=== PATIENT | female | born 1935 | race Two or more races ===

== ENCOUNTER 2017-08-29 18:43 | Inpatient (IN) | payer OTHER ==
[~2017-08-29] VITALS: Ht 149.9 cm; Wt 61.2 kg
[~2017-08-29 18:43] MED LIST: ALBUTEROL0.63 MG/3; ANORO ELLIPTA1 EACH; ATIVAN0.5 MG; CATAFLAM50 MG PO; CELEBREX200MG PO; CIPRO500 MG PO; COZAAR50 MG; DULERA 100 MCG/13 GM; GABAPENTIN800 MG; GLUCOPHAGE XR750 MG; INTESTINEX1 CAP PO; INTESTINEX680 MG PO; IRON1TAB4 PO; Intestinex CAP PO; LEVAQUIN750 MG PO; LYRICA100 MG; LYRICA50 MG; MEDROLPACK PO; NABUMETONE750 MG PO; NEURONTIN300 MG PO; NEURONTIN800 MG; ORPH100T PO; PEPCID40 MG PO; PROZAC10 MG; SINGULAIR10 MG; SPIRIVA; ULTRAN; VASOTEC5 MG; ZOFRAN4 MG PO; ZYNCOF 20-400120 ML PO; [UNRECOGNIZED DRUG - OTHER] PO
[2017-09-06] MEDS ORDERED: FLUCONAZOLE100 MG PO (11:38)
== END 2017-09-06 13:23 | disposition home or self-care (01) | DRG 202 ==
LOC: ER 18:43 → SEC-K 08-30 07:52 → MEDJ 08-30 14:14
PROC: 3E0F7GC Introduction of Other Therapeutic Substance into Respiratory Tract, Via Natural or Artificial Opening (ICD-10-PCS; principal; 2017-08-30)
PROC: 4A033R1 Measurement of Arterial Saturation, Peripheral, Percutaneous Approach (ICD-10-PCS; 2017-08-30)
PROC: BW24ZZZ Computerized Tomography (CT Scan) of Chest and Abdomen (ICD-10-PCS; 2017-08-30)
PROC: BW21Y0Z Computerized Tomography (CT Scan) of Abdomen and Pelvis using Other Contrast, Unenhanced and Enhanced (ICD-10-PCS; 2017-09-03)
DX: J45.31 Mild persistent asthma with (acute) exacerbation (principal); J44.1 Chronic obstructive pulmonary disease with (acute) exacerbation; N39.0 Urinary tract infection, site not specified; R09.02 Hypoxemia; E11.42 Type 2 diabetes mellitus with diabetic polyneuropathy; I10 Essential (primary) hypertension; R41.0 Disorientation, unspecified; K57.30 Diverticulosis of large intestine without perforation or abscess without bleeding; E86.0 Dehydration; K80.80 Other cholelithiasis without obstruction; K29.60 Other gastritis without bleeding

== ENCOUNTER 2017-09-10 18:56 | Inpatient (IN) | payer OTHER ==
[~2017-09-10] VITALS: Ht 157.5 cm; Wt 56.7 kg
[~2017-09-10 18:56] MED LIST changes: +FLUCONAZOLE100 MG PO
[2017-09-23] MEDS ORDERED: PROTONIX40 MG PO (10:46)
== END 2017-09-23 13:28 | disposition home or self-care (01) | DRG 392 ==
LOC: ER 18:56 → MEDI 09-11 10:33
PROC: BW28ZZZ Computerized Tomography (CT Scan) of Head (ICD-10-PCS; principal; 2017-09-11)
PROC: 02HV33Z Insertion of Infusion Device into Superior Vena Cava, Percutaneous Approach (ICD-10-PCS; 2017-09-12)
PROC: CF1C1ZZ Planar Nuclear Medicine Imaging of Hepatobiliary System, All using Technetium 99m (Tc-99m) (ICD-10-PCS; 2017-09-12)
PROC: B030ZZZ Magnetic Resonance Imaging (MRI) of Brain (ICD-10-PCS; 2017-09-12)
PROC: 3E0F7GC Introduction of Other Therapeutic Substance into Respiratory Tract, Via Natural or Artificial Opening (ICD-10-PCS; 2017-09-17)
PROC: 4A033R1 Measurement of Arterial Saturation, Peripheral, Percutaneous Approach (ICD-10-PCS; 2017-09-17)
PROC: BW21ZZZ Computerized Tomography (CT Scan) of Abdomen and Pelvis (ICD-10-PCS; 2017-09-19)
DX: K57.32 Diverticulitis of large intestine without perforation or abscess without bleeding (principal); J44.1 Chronic obstructive pulmonary disease with (acute) exacerbation; J45.31 Mild persistent asthma with (acute) exacerbation; I10 Essential (primary) hypertension; E87.6 Hypokalemia; E83.42 Hypomagnesemia; E83.39 Other disorders of phosphorus metabolism; K52.89 Other specified noninfective gastroenteritis and colitis; K29.00 Acute gastritis without bleeding; E11.42 Type 2 diabetes mellitus with diabetic polyneuropathy; R09.02 Hypoxemia; K29.80 Duodenitis without bleeding; K80.80 Other cholelithiasis without obstruction; E83.51 Hypocalcemia
CPT/HCPCS: 70553

== ENCOUNTER → 2017-09-30 | Emergency (ER) | payer OTHER ==
[~2017-09-30] VITALS: Ht 149.9 cm; Wt 56.7 kg
[~2017-09-30] MED LIST changes: +PROTONIX40 MG PO
== END | disposition left against medical advice (07) ==
LOC: ER 13:51
DX: Z53.20 Procedure and treatment not carried out because of patient's decision for unspecified reasons (principal)

== ENCOUNTER → 2017-10-25 | Emergency (ER) | payer OTHER ==
[~2017-10-25] VITALS: Ht 180.3 cm; Wt 56.7 kg
[~2017-10-25] MED LIST changes: +PRINIVIL10 MG
== END | disposition home or self-care (01) ==
LOC: ER 06:33
DX: K29.70 Gastritis, unspecified, without bleeding (principal)

== ENCOUNTER 2018-02-23 09:19 | Outpatient (CLI) | payer OTHER | END 2018-02-23 09:28 | disposition home or self-care (01) | LOC: MRI 09:19 | DX: M54.16 Radiculopathy, lumbar region (principal) | CPT/HCPCS: 72148 ==

== ENCOUNTER 2018-04-04 09:05 | Outpatient (CLI) | payer OTHER | END 2018-04-04 09:07 | disposition home or self-care (01) | LOC: MAMO-SONO 09:05 | DX: Z12.31 Encounter for screening mammogram for malignant neoplasm of breast (principal); Z87.898 Personal history of other specified conditions; N64.89 Other specified disorders of breast; R07.89 Other chest pain ==

== ENCOUNTER 2018-04-12 19:23 | Emergency (ER) | payer OTHER ==
[~2018-04-12] VITALS: Ht 149.9 cm; Wt 59.9 kg
== END 2018-04-12 23:53 | disposition home or self-care (01) ==
LOC: ER 19:23
DX: J45.901 Unspecified asthma with (acute) exacerbation (principal); J11.1 Influenza due to unidentified influenza virus with other respiratory manifestations

== ENCOUNTER 2018-09-24 20:57 | Emergency (ER) | payer OTHER ==
[~2018-09-24] VITALS: Ht 149.9 cm; Wt 65.8 kg
[2018-09-24] MEDS ORDERED: QVAR REDIHALE10.6 G1 IH (21:20)
[2018-09-24] MEDS ORDERED: ANORO ELLIPTA1 EACH (21:20)
[2018-09-25] MEDS ORDERED: PEPCID AC20 MG PO (01:23)
[2018-09-26] MEDS ORDERED: INTESTINEX680 M1 PO (15:54)
== END 2018-09-25 01:31 | disposition home or self-care (01) ==
LOC: ER 20:57
DX: K29.60 Other gastritis without bleeding (principal); J45.998 Other asthma

== ENCOUNTER 2018-09-26 10:15 | Emergency (ER) | payer OTHER ==
[~2018-09-26] VITALS: Ht 160 cm; Wt 68.0 kg
[~2018-09-26 10:15] MED LIST changes: +PEPCID AC20 MG PO; +QVAR REDIHALE10.6 G1 IH
[2018-09-26] MEDS ORDERED: INTESTINEX680 M1 PO (15:54)
== END 2018-09-26 16:53 | disposition home or self-care (01) ==
LOC: ER 10:15
DX: E86.0 Dehydration (principal); R10.13 Epigastric pain; R10.32 Left lower quadrant pain

== ENCOUNTER 2018-10-20 18:34 | Emergency (ER) | payer OTHER ==
[~2018-10-20] VITALS: Ht 149.9 cm; Wt 63.5 kg
[~2018-10-20 18:34] MED LIST changes: +INTESTINEX680 M1 PO
== END 2018-10-20 19:48 | disposition home or self-care (01) ==
LOC: ER 18:34
DX: R10.13 Epigastric pain (principal)

== ENCOUNTER 2018-11-07 06:39 | Outpatient (CLI) | payer OTHER | END 2018-11-07 07:51 | disposition home or self-care (01) | LOC: LAB 06:39 | DX: D50.8 Other iron deficiency anemias (principal); J44.9 Chronic obstructive pulmonary disease, unspecified; I10 Essential (primary) hypertension; D51.1 Vitamin B12 deficiency anemia due to selective vitamin B12 malabsorption with proteinuria; E08.42 Diabetes mellitus due to underlying condition with diabetic polyneuropathy; D51.8 Other vitamin B12 deficiency anemias; D55.0 Anemia due to glucose-6-phosphate dehydrogenase [G6PD] deficiency; E03.8 Other specified hypothyroidism; E06.3 Autoimmune thyroiditis; R97.0 Elevated carcinoembryonic antigen [CEA] ==

== ENCOUNTER 2018-11-07 08:20 | Outpatient (CLI) | payer OTHER | END 2018-11-07 08:27 | disposition home or self-care (01) | LOC: RAD 08:20 | DX: R07.89 Other chest pain (principal) ==

== ENCOUNTER 2019-10-21 19:40 | Emergency (ER) | payer OTHER ==
[~2019-10-21] VITALS: Ht 149.9 cm; Wt 66.7 kg
[2019-10-21] MEDS ORDERED: GLIPIZIDE XL5 MG (20:20)
== END 2019-10-21 23:41 | disposition home or self-care (01) ==
LOC: ER 19:40
DX: K80.20 Calculus of gallbladder without cholecystitis without obstruction (principal)

== ENCOUNTER 2019-10-30 13:33 | Emergency (ER) | payer OTHER ==
[~2019-10-30] VITALS: Ht 149.9 cm; Wt 66.7 kg
[~2019-10-30 13:33] MED LIST changes: +GLIPIZIDE XL5 MG
[2019-10-30] MEDS ORDERED: LYRICA200 MG (13:43)
== END 2019-10-30 18:51 | disposition home or self-care (01) ==
LOC: ER 13:33
DX: R41.0 Disorientation, unspecified (principal); R53.81 Other malaise

== ENCOUNTER 2020-01-22 18:31 | Inpatient (IN) | payer OTHER ==
[~2020-01-22] VITALS: Ht 149.9 cm; Wt 71.2 kg
[~2020-01-22 18:31] MED LIST changes: +LYRICA200 MG
[2020-01-22] MEDS ORDERED: ATORVASTATIN CA20 MG (19:12)
[2020-02-04] MEDS ORDERED: AMLODIPINE BESYL5 MG PO (16:15)
[2020-02-04] MEDS ORDERED: AVIDOXY100 MG PO (16:16)
== END 2020-02-04 18:12 | disposition home or self-care (01) | DRG 190 ==
LOC: ER 18:31 → SEC-K 01-23 10:00 → SURH 01-24 00:57 → SEC-K 01-24 00:58 → SURH 01-24 07:44
PROVIDERS: ADMIT Internal Medicine; ATTEND Internal Medicine
PROC: 4A033R1 Measurement of Arterial Saturation, Peripheral, Percutaneous Approach (ICD-10-PCS; 2020-01-23)
PROC: 5A09557 Assistance with Respiratory Ventilation, Greater than 96 Consecutive Hours, Continuous Positive Airway Pressure (ICD-10-PCS; 2020-01-23)
PROC: BW28ZZZ Computerized Tomography (CT Scan) of Head (ICD-10-PCS; 2020-01-23)
PROC: 02HV33Z Insertion of Infusion Device into Superior Vena Cava, Percutaneous Approach (ICD-10-PCS; principal; 2020-01-24)
PROC: B54MZZZ Ultrasonography of Right Upper Extremity Veins (ICD-10-PCS; 2020-02-02)
DX: J43.9 Emphysema, unspecified (principal); J96.01 Acute respiratory failure with hypoxia; E87.2 Acidosis; E87.1 Hypo-osmolality and hyponatremia; I10 Essential (primary) hypertension; D50.8 Other iron deficiency anemias; B96.0 Mycoplasma pneumoniae [M. pneumoniae] as the cause of diseases classified elsewhere; E11.65 Type 2 diabetes mellitus with hyperglycemia; Z74.01 Bed confinement status; T42.6X5A Adverse effect of other antiepileptic and sedative-hypnotic drugs, initial encounter; Y92.230 Patient room in hospital as the place of occurrence of the external cause; E11.42 Type 2 diabetes mellitus with diabetic polyneuropathy; Z99.81 Dependence on supplemental oxygen

== ENCOUNTER 2020-02-20 07:11 | Emergency (ER) | payer OTHER ==
[~2020-02-20] VITALS: Ht 149.9 cm; Wt 66.7 kg
[~2020-02-20 07:11] MED LIST changes: +AMLODIPINE BESYL5 MG PO; +ATORVASTATIN CA20 MG; +AVIDOXY100 MG PO
== END 2020-02-20 13:00 | disposition home or self-care (01) ==
LOC: ER 07:11
DX: R10.11 Right upper quadrant pain (principal)